=== PATIENT | female | born 1950 | race Caucasian/White ===

== ENCOUNTER 2017-09-04 11:19 | Outpatient (CLI) | payer MEDICARE ==
[2017-09-04 12:00] LABS: #Eosinphils 0.1 thou/uL (0.0-0.7); #Monocytes 0.4 thou/uL (0.11-0.59); #Neutrophils 2.5 thou/uL (1.40-6.50); %Basophils 0.8 % (0.0-1.0); %Lymphocytes 39.3 % (21.0-51.0); %Monocytes 8.3 % (0.0-10.0); %Neutrophils 49.5 % (42.0-75.0); Hemoglobin 12.2 g/dL (12.0-16.0); Mean Corpuscular HGB CONC 33.4 g/dL (32.0-36.0); Mean Corpuscular Hemoglobin 28.8 pg (27.0-31.0); Mean Corpuscular Volume 86.3 fl (81.0-99.0); Mean Platelet Volume 7.1 fL (7.4-10.4); Platelet Count 268 thou/uL (130-400); RBC Distribution Width 11.8 % (11.5-14.5); Red Blood Cell (RBC) Count 4.23 mill/uL (4.20-5.40)
[2017-09-04 12:22] LABS: PTT 33.1 SEC (22.9-36.1); Prothrombin Time 13.4 SEC (12.0-14.7)
[2017-09-04 12:30] LABS: Bilirubin Small (Negative); Blood, Urine Negative (Negative); Clarity CLOUDY (Clear); Glucose, Urine (Dipstick) Negative (Negative); Leukocyte Small (Negative); Nitrite Negative (Negative); Protein, Urine (Dipstick) Trace mg/dL (Neg-Trace); Specific Gravity, Urine 1.034 (1.002-1.036)
[2017-09-04 12:38] LABS: Bacteria/HPF Rare-Few HPF (None Seen); Pathc Cast-AUWi Flag 1.74 (0-2.49)
[2017-09-04 12:45] LABS: Hyaline Casts/LPF 4-6 HYALINE CAST LPF (0-3 Hyaline); Renal Epithelial None Seen HPF (0-3); Transitional Epithelial 0-3 HPF (0-3)
[2017-09-04 12:45] LABS: Anion Gap 10 mmol/L (10-20); BUN (Urea Nitrogen) 15 mg/dL (9.8-20.1); Calc. Creatinine Clearance 0 mL/min (70-130); Calcium 9.7 mg/dL (7.8-10.44); Carbon Dioxide 27 mmol/L (23-31); Chloride 106 mmol/L (98-107); Estimated GFR-MDRD 88; Glucose 103 mg/dL (80-115); Potassium 3.7 mmol/L (3.5-5.1); Sodium 139 mmol/L (136-145)
[2017-09-04 12:46] LABS: Crystals/HPF RARE CA OXALATE HPF (Negative)
--- NOTE | 2017-09-04 13:25 | RAD ---
TWO VIEW CHEST: HISTORY: Preoperative evaluation. COMPARISON: 04/24/16. FINDINGS: The thoracolumbar scoliotic curvature to the right is again noted. Epidural stimulator leads are aga in noted overlying the midthoracic spine. The lung cornejo appear clear. Heart and mediastinum unrem arkable. Osseous structures unremarkable. IMPRESSION: No acute process or significant interval change. POS: [facility]
--- NOTE | 2017-09-10 15:29 | EKG ---
Test Reason : Blood Pressure : / mmHG Vent. Rate : 076 BPM Atrial Rate : 076 BPM P-R Int : 170 ms QRS Dur : 094 ms QT Int : 380 ms P-R-T Axes : 062 061 061 degrees QTc Int : 427 ms Normal sinus rhythm Normal ECG When compared with ECG of 24-APR-2016 13:27, No significant change was found Confirmed by Rishi MOSLEY ([id number]) on 09/10/2017 3:29:24 PM Referred By: GLORIA Confirmed By:Rishi MOSLEY
== END 2017-09-04 11:20 | disposition home or self-care (01) ==
LOC: LABBT 11:19
PROVIDERS: ATTEND Orthopaedic Surgery
DX: Z01.818 Encounter for other preprocedural examination (principal); M17.12 Unilateral primary osteoarthritis, left knee
CPT/HCPCS: 71046; 80048; 81001; 85025; 85610; 85730; 86850; 86900; 86901; 87081; 93005; 93010

== ENCOUNTER 2017-09-10 08:22 | Inpatient (IN) | payer MEDICARE ==
[2017-09-04 11:58] VITALS: BMI 27.8
[2017-09-10] MEDS ORDERED: Midazolam HCl 2 mg/2 ml Vial ONE ×2 (10:10→13:46)
[2017-09-10] MEDS ORDERED: Fentanyl 100 MCG/2 ML VIAL ONE ×3 (10:11→13:24)
[2017-09-10] MEDS ORDERED: CEFAZOLIN/Water 2 GM/20 ML SYRINGE ONE (10:12)
[2017-09-10] MEDS ORDERED: Sodium Chloride 0.9% 100 ML ONE (10:12)
[2017-09-10] MEDS ORDERED: Acetaminophen 325 MG TAB PO PRN (10:46)
[2017-09-10] MEDS ORDERED: Ondansetron HCl/PF 4 MG/2 ML Vial IVP PRN ×2 (10:46→11:04)
[2017-09-10] MEDS ORDERED: HYDROcodone/Acetaminophen 10/325 mg Tablet PO PRN ×3 (10:46→11:04)
[2017-09-10] MEDS ORDERED: diphenhydrAMINE 25 MG CAP PO PRN (10:46)
[2017-09-10] MEDS ORDERED: Zolpidem Tartrate 5 MG TAB PO PRN ×2 (10:46→11:04)
[2017-09-10] MEDS ORDERED: traMADol HCl 50 MG TAB PO PRN ×3 (10:46→11:04)
[2017-09-10] MEDS ORDERED: Fentanyl 100 MCG/2 ML VIAL SLOW IVP PRN ×2 (10:46)
[2017-09-10] MEDS ORDERED: Promethazine HCl 25 MG/ML VIAL IM PRN ×2 (10:46→11:04)
[2017-09-10] MEDS ORDERED: Tranexamic Acid 1,000 MG in Sodium Chloride 0.9% 100 ML IVPB SCH (11:00)
--- NOTE | 2017-09-10 13:02 | OP ---
DATE OF PROCEDURE: 09/10/2017 PREOPERATIVE DIAGNOSIS: End-stage tricompartmental osteoarthritis, left knee. POSTOPERATIVE DIAGNOSIS: End-stage tricompartmental osteoarthritis, left knee. OPERATIVE PROCEDURE: Cemented cruciate-sparing computer-assisted navigated left total knee arthropla stcamila. SURGEON: Angus Ye M.D. SUSTAINABILITY COMMUNICATOR: Arsh Moe PA-C. ANESTHESIA: General via laryngeal mask airway augmented with indwelling femoral block and a single s hot sciatic block. COMPONENTS USED: [employer] Triathlon primary cemented, size 4 cruciate-sparing femoral com ponent, Triathlon primary size 4 tibial baseplate, and a 9 mm polyethylene fixed bearing insert, and A29 patellar button. TOURNIQUET TIME: 56 minutes at 300 mmHg. ESTIMATED BLOOD LOSS: Less than 100 mL. FINDINGS: End-stage severe degenerative tricompartmental disease, bone on bone arthrosis, periarticu lar osteophyte formation, large serous effusion and hypertrophic synovium. DRAINS: None. SPECIMENS: None. COMPLICATIONS: None. COUNTS: Correct. INDICATIONS FOR SURGERY: Lakisha is a 66-year-old white female who has had progressive left knee pain amplified with standing and walking for the last 5-7 years. She has failed conservative management a nd elected to proceed with total knee arthroplasty as a definitive treatment of her pain. PROCEDURE IN DETAIL: After informed consent was obtained in the preoperative holding area. The marisol ent was taken to the operative suite where general anesthesia was induced. Once adequate level of ge neral anesthesia was obtained, the patient was positioned and a well-padded tourniquet was placed denisha und the left proximal thigh. The left lower extremity was then prepped and draped in the usual steri le fashion. Prior to exsanguination, a time out was called and all members of the surgical team agre ed upon site, surgeon, and patient. The extremity was then exsanguinated and the tourniquet was rais ed. A midline longitudinal incision was then made directly over the patella extending two fingerbrea dths above the superior pole of the patella and two fingerbreadths inferior to the inferior patellar pole of the patella. Deeper subcutaneous layers were dissected sharply and local bleeding was contro lled with Bovie electrocautery. A quad tendon longitudinal split was then made sharply and a median parapatellar arthrotomy was carried out both sharp and with Bovie electrocautery, carried down to one fingerbreadth medial to the tibial tubercle. The knee was then placed into flexion and the patella was everted nicely, and a copious fat pad ectomy was performed allowing for greater exposure of the t ibia. The computer-assisted distal femoral fiducial was then placed and pinned firmly, and the dista l femoral cutting guide was pinned firmly into place. The oscillating saw was then used to remove th e appropriate amount of bone. The 4-in-1 cutting block was then placed on the distal femur and the o scillating saw was used to remove the appropriate amount of bone off of the anterior, posterior, and chamfer cuts. After completion of the chamfer cuts, the box-cutting guide was placed, malleted firml y into place and pinned securely, and an osteotome was used to make the distal cut and the oscillatin g saw was then used to make the medial and lateral box cuts. This came out quite nicely and was neo asha with Bovie electrocautery, and the oscillating saw was then used to broaden the lateral medial wa lls of the box cut. After completion of bone cuts, the anterior cruciate ligament was resected sharp ly and the posterior cruciate ligament retractor was placed and the tibia was subluxed for better exp osure. Partial meniscectomies were carried out, and the tibial computer-assisted fiducial was pinned , and the cutting guide was placed. Oscillating saw was then used to remove the bone with Hohmann re tractors used to take care and protect the collateral ligaments. After the tibial resection was perf ormed, a laminar janitorial manager was placed in between the freshened bone cuts. The knee placed at 90 degre es and further bilateral meniscectomies were carried out, and the curved osteotome and curettage was used to remove any excess bone spurs in the posterior compartment. The trial femoral component, tibi al baseplate were placed with the appropriate polyethylene trial insert with an appropriate polyethyl yuriy spacer and patellar button. The knee was taken through full range of motion with flexion and ext ension from 0-90 degrees and patellar broach squarely in the trochlea without any squinting or sublu xation noted. The knee was also stable to varus and valgus stressing at 0, 15, 45, and 90 degrees of flexion. The drawer was negative. All trial components were then removed and the keel punch was use d to provide the appropriate defect in the tibia with a mallet. The freshened bone cuts were copious ly irrigated with pulsatile lavage of about 1-1/2 liters to remove all excess debris. The freshened bone cuts were then dried and with suction and lap sponge. The knee was placed in flexion and retrac tors were placed to provide access to all bone cuts. Tobramycin impregnated methyl methacrylate ceme nt was then placed on the freshened bone cuts and implants which were malleted firmly into place. Cu rettage and [place] elevators were used to remove any excess bone cement. The knee was placed into ful l extension and the patellar button was placed under compression, and the cement was allowed to cure. Once completed, the components were again taken through full range of motion and copious irrigation of the knee was carried out with another liter of normal saline. All components were inspected full y with full range of motion and varus and valgus stressing. There was no laxity noted and full extens ion was observed clinically. Primary closure was accomplished with #2 interrupted Vicryl stitch of t he arthrotomy defect. This was oversewn with a #2 running Quill barbed stitch. The subcutaneous lay er was then closed with a running 0 barbed Monocryl stitch and skin closure accomplished with a runni ng subcuticular 3-0 Monocryl barbed Quill stitch and augmented with cement on the skin. Tourniquet w as lowered. Good spontaneous return of distal pulses was noted clinically and a sterile dressing was applied to the incision. The procedure was terminated without any complications. The patient was a wakened in the operative suite and taken to the recovery room in stable condition.
[2017-09-10] MEDS ORDERED: Morphine 4 MG/ML VIAL ONE (13:28)
[2017-09-10] MEDS ORDERED: HYDROmorphone 0.5 MG/0.5 ML SYRINGE ONE (13:43)
[2017-09-10] MEDS ORDERED: Ketorolac Tromethamine 30 MG/ML VIAL IVP SCH (14:00)
--- NOTE | 2017-09-10 14:18 | RAD ---
LEFT KNEE TWO VIEWS: HISTORY: Total knee replacement postop exam. FINDINGS: There are recent postop changes of total knee arthroplasty in good position and alignment. Soft tiss ue air is noted. POS: [facility]
[2017-09-10] MEDS ORDERED: Lidocaine 1% PF 5 ML VIAL ONE (15:41)
[2017-09-10] MEDS ORDERED: Ondansetron HCl/PF 4 MG/2 ML Vial ONE (15:41)
[2017-09-10] MEDS ORDERED: Ketorolac Tromethamine 30 MG/ML VIAL ONE (15:41)
[2017-09-10] MEDS ORDERED: PROPOFOL 200 MG/20 ML VIAL ONE (15:41)
[2017-09-10] MEDS: Sodium Chloride 0.9% 1,000 ML IV SCH ×2 (15:44→20:25)
[2017-09-10] MEDS: HYDROcodone/Acetaminophen 10/325 mg Tablet PO PRN ×2 (15:50→20:11)
[2017-09-10] MEDS: Gabapentin 100 MG CAP PO SCH ×2 (15:50→20:12)
[2017-09-10] MEDS: CEFAZOLIN/Water 2 GM/20 ML SYRINGE SLOW IVP SCH (18:16)
[2017-09-10] MEDS: traZODone HCl 150 MG TAB PO SCH (20:09)
[2017-09-10] MEDS: Rosuvastatin 20 MG TAB PO SCH (20:09)
[2017-09-10] MEDS: Docusate 100 MG CAP PO SCH (20:09)
[2017-09-10] MEDS: Venlafaxine HCl XR 150 MG CAP PO SCH (20:10)
[2017-09-10] MEDS: Aspirin 81 mg Enteric Coated Tablet PO SCH (20:10)
[2017-09-10] MEDS: Ferrous Gluconate 324 MG TAB PO SCH (20:11)
[2017-09-10] MEDS: lamoTRIgine 100 MG TAB PO SCH (20:11)
[2017-09-10] MEDS ORDERED: Prevnar 13-Val Conj/PF 0.5 ML SYRINGE IM ONE (21:00)
[2017-09-10] MEDS ORDERED: Lorazepam 1 MG TAB PO SCH (21:00)
[2017-09-10] MEDS ORDERED: Senokot 8.6 MG TAB PO SCH (21:00)
--- NOTE | 2017-09-10 22:29 | PDOC.PN ---
- Subjective Encounter Start Date: 09/10/17 Encounter Start Time: 15:00 Patient seen and examined for med mngt. Back pain + which is chronic. No new complaints. - Objective MAR Reviewed: Yes Vital Signs & Weight: Vital Signs (12 hours) Temp Pulse Resp BP Pulse Ox 09/10/17 20:00 98.1 F 74 16 118/70 93 L 09/10/17 14:30 97.3 F L 71 16 136/73 95 Weight Weight 157 lb I&O: 09/09/17 09/10/17 09/11/17 06:59 06:59 06:59 Intake Total 550 Output Total 250 Balance 300 Additional Labs: Laboratory Tests 09/04/17 09/04/17 11:40 11:40 Hgb 12.2 Sodium 139 BUN 15 Creatinine 0.67 EKG Reviewed by me: Yes (SR) Phys Exam - Physical Examination Constitutional: NAD Respiratory: no wheezing, no rales, no rhonchi Cardiovascular: RRR, no rub Gastrointestinal: soft, non-tender, positive bowel sounds Musculoskeletal: no edema Dx/Plan (1) HLD (hyperlipidemia) Code(s): E78.5 - HYPERLIPIDEMIA, UNSPECIFIED Status: Chronic (2) Chronic back pain Code(s): M54.9 - DORSALGIA, UNSPECIFIED; G89.29 - OTHER CHRONIC PAIN Status: Chronic Qualifiers: (3) Anxiety and depression Code(s): F41.9 - ANXIETY DISORDER, UNSPECIFIED; F32.9 - MAJOR DEPRESSIVE DISORDER, SINGLE EPISODE, UNSPECIFIED Status: Chronic (4) CKD (chronic kidney disease) stage 2, GFR 60-89 ml/min Code(s): N18.2 - CHRONIC KIDNEY DISEASE, STAGE 2 (MILD) Status: Chronic - Plan DVT proph w/SCDs Cont current home meds as below -: High risk for resp depression while on pain meds/Lorazepam -: Will add cont pulse ox -: DC Gabapentin - Pt does not take this med anymore -: Will follow. Thank you for this consultation. Full code - DPOA - self/fam Review of Systems - Review of Systems Respiratory: negative: Cough, Dry, Shortness of Breath, Hemoptysis, SOB with Excertion, Pleuritic Pain, Sputum, Wheezing Cardiovascular: negative: chest pain, palpitations, orthopnea, paroxysmal nocturnal dyspnea, edema, light headedness, other - Medications/Allergies Allergies/Adverse Reactions: Allergies Allergy/AdvReac Type Severity Reaction Status Date / Time No Known Allergies Allergy Verified 09/04/17 11:59 Medications: Current Medications Acetaminophen (Tylenol) 650 mg PO Q4H PRN PRN Reason: MARIN/ T > 101F; Mild Pain (1-3) Hydrocodone Bitart/Acetaminophen ([place] 10/325) 1 tab PO Q4H PRN PRN Reason: Pain (1-3) Hydrocodone Bitart/Acetaminophen ([place] 10/325) 2 tab PO Q4H PRN PRN Reason: PAIN (4-6) Last Admin: 09/10/17 20:11 Dose: 2 tab Aspirin (Ecotrin) 81 mg PO BID [facility] Last Admin: 09/10/17 20:10 Dose: 81 mg Cefazolin Sodium (Ancef) 2 gm SLOW IVP Q8H [facility] Stop: 09/11/17 03:01 Last Admin: 09/10/17 18:16 Dose: 2 gm Cholecalciferol (Vitamin D3) 2,000 units PO [facility] Last Admin: 09/10/17 20:10 Dose: 2,000 units Diphenhydramine HCl (Benadryl) 25 mg PO Q6H PRN PRN Reason: Itching Docusate Sodium (Colace) 100 mg PO BID [facility] Last Admin: 09/10/17 20:09 Dose: 100 mg Fentanyl (Sublimaze) 50 mcg IV Q1H PRN PRN Reason: BREAKTHROUGH PAIN Ferrous Gluconate (Fergon) 324 mg PO BID [facility] Last Admin: 09/10/17 20:11 Dose: 324 mg Sodium Chloride (Normal Saline 0.9%) 1,000 mls @ 100 mls/hr IV .Q10H [facility] Last Admin: 09/10/17 20:25 Dose: Not Given Bupivacaine HCl 50 ml/ Sodium (Chloride) 100 mls @ 0 mls/hr NERVE BLCK INF [facility] PRN Reason: As Directed Iron/Minerals/Multivitamins (Theragran M) 1 tab PO DAILY [facility] Lamotrigine (Lamictal) 200 mg PO [facility] Last Admin: 09/10/17 20:11 Dose: 200 mg Lorazepam (Ativan) 1 mg PO [facility] Last Admin: 09/10/17 20:10 Dose: 1 mg Ondansetron HCl (Zofran) 4 mg IVP Q6H PRN PRN Reason: Nausea/Vomiting Pantoprazole Sodium (Protonix) 40 mg PO BID [facility] Last Admin: 09/10/17 20:10 Dose: 40 mg Promethazine HCl (Phenergan) 12.5 mg IM Q4H PRN PRN Reason: Nausea Rosuvastatin Calcium (Crestor) 20 mg PO HS [facility] Last Admin: 09/10/17 20:09 Dose: 20 mg Senna/Docusate Sodium (Senokot S) 2 tab PO BID [facility] Sodium Chloride (Flush - Normal Saline) 10 ml IVF PRN PRN PRN Reason: Saline Flush Tramadol HCl (Ultram) 50 mg PO Q6H PRN PRN Reason: Mild Pain (1-3) Tramadol HCl (Ultram) 100 mg PO Q6H PRN PRN Reason: Moderate Pain 4-6 Trazodone HCl (Desyrel) 150 mg PO [facility] Last Admin: 09/10/17 20:09 Dose: 150 mg Venlafaxine HCl (Effexor Xr) 150 mg PO BID [facility] Last Admin: 09/10/17 20:10 Dose: 150 mg Zolpidem Tartrate (Ambien) 5 mg PO HSPRN PRN PRN Reason: Insomnia
[2017-09-11] MEDS: Bupivacaine 0.5% 50 ML in Sodium Chloride 0.9% 50 ML NERVE BLCK SCH ×2 (01:22→13:06)
[2017-09-11] MEDS: HYDROcodone/Acetaminophen 10/325 mg Tablet PO PRN ×3 (01:27→09:48)
[2017-09-11] MEDS: CEFAZOLIN/Water 2 GM/20 ML SYRINGE SLOW IVP SCH (02:24)
[2017-09-11] MEDS: Fentanyl 100 MCG/2 ML VIAL IV PRN ×2 (04:29→07:07)
[2017-09-11 05:29] LABS: Hemoglobin 10.9 g/dL (12.0-16.0); Mean Corpuscular HGB CONC 32.9 g/dL (32.0-36.0); Mean Corpuscular Hemoglobin 28.3 pg (27.0-31.0); Mean Corpuscular Volume 85.9 fl (81.0-99.0); Mean Platelet Volume 6.9 fL (7.4-10.4); Platelet Count 209 thou/uL (130-400); RBC Distribution Width 11.7 % (11.5-14.5); Red Blood Cell (RBC) Count 3.87 mill/uL (4.20-5.40); White Blood Cell (WBC) Count 7.9 thou/uL (4.8-10.8)
[2017-09-11] MEDS: Sodium Chloride 0.9% 1,000 ML IV SCH (06:00)
[2017-09-11] MEDS: Ferrous Gluconate 324 MG TAB PO SCH ×2 (09:47→21:39)
[2017-09-11] MEDS: Docusate 100 MG CAP PO SCH ×2 (09:47→21:41)
[2017-09-11] MEDS: Aspirin 81 mg Enteric Coated Tablet PO SCH ×2 (09:48→21:41)
[2017-09-11] MEDS: Senokot S 8.6-50 MG TAB PO SCH ×2 (09:48→21:48)
[2017-09-11] MEDS: Multivitamin W/ Minerals 1 TAB PO SCH (09:48)
[2017-09-11] MEDS: Venlafaxine HCl XR 150 MG CAP PO SCH ×2 (11:21→21:39)
[2017-09-11] MEDS ORDERED: fentaNYL Citrate/PF 2,000 MCG in Sodium Chloride 0.9% 60 ML IV PRN (11:30)
--- NOTE | 2017-09-11 12:28 | PRG ---
DATE OF SERVICE: 09/11/2017 SUBJECTIVE: Lakisha is a 66-year-old white female who is postop day #1 from left total knee arthroplas ty. She complains bitterly of pain. She is uncomfortable and we have had to use parenteral pain con trol for her. PHYSICAL EXAMINATION: VITAL SIGNS: Temperature 98.6, pulse 85, respiratory rate 16, blood pressure is 1702/64. GENRAL: She is alert and oriented. She is responsive, and appropriate, but a little sluggish. Zenia sly nonfocal. Hemoglobin and hematocrit 10.9 and 32.2. ASSESSMENT: 1. A 66-year-old white female postop day #1 left total knee arthroplasty. 2. Bipolar disorder. 3. Chronic pain. 4. Mild postoperative hemorrhagic anemia. PLAN: Continue current care. Pain control will be maximized, but I believe she will probably be inp atient until Saturday of this week.
[2017-09-11] MEDS: Acetaminophen 325 MG TAB PO SCH ×2 (13:06→19:04)
--- NOTE | 2017-09-11 13:41 | PDOC.PN ---
- Subjective Encounter Start Date: 09/11/17 Encounter Start Time: 12:00 -: old records requested/rev Pt seen and exmained, chart reviewed in its entirety, this is my first visit with this patient followup consultation for med management post R TKA POD 1, pain ok, anesthesia discussng with patient at present as well no F/c, no N/V/D/c, no CP or SOB. All systems reviewed and neg x as above - Objective MAR Reviewed: Yes Vital Signs & Weight: Vital Signs (12 hours) Temp Pulse Resp BP Pulse Ox 09/11/17 11:41 97.9 F 76 16 147/74 H 96 09/11/17 07:49 98.6 F 85 172/64 H 95 09/11/17 05:24 98.6 F 87 16 158/76 H 94 L Weight Admit Weight 157 lb Weight 157 lb I&O: 09/10/17 09/11/17 09/12/17 06:59 06:59 06:59 Intake Total 1867 481 Output Total 250 600 Balance 1617 -119 Result Diagrams: 09/11/17 05:03 Radiology Reviewed by me: Yes EKG Reviewed by me: Yes Phys Exam - Physical Examination Constitutional: NAD HEENT: PERRLA, moist MMs, sclera anicteric, oral pharynx no lesions Neck: no nodes, no JVD, supple, full ROM Respiratory: no wheezing, no rales, no rhonchi, clear to auscultation bilateral Cardiovascular: RRR, no significant murmur Gastrointestinal: soft, non-tender, no distention, positive bowel sounds Musculoskeletal: pulses present, edema present Neurological: non-focal, normal sensation, moves all 4 limbs Lymphatic: no nodes Psychiatric: normal affect, A&O x 3 Skin: no rash, normal turgor, cap refill <2 seconds Dx/Plan (1) Anxiety and depression Code(s): F41.9 - ANXIETY DISORDER, UNSPECIFIED; F32.9 - MAJOR DEPRESSIVE DISORDER, SINGLE EPISODE, UNSPECIFIED Status: Chronic (2) CKD (chronic kidney disease) stage 2, GFR 60-89 ml/min Code(s): N18.2 - CHRONIC KIDNEY DISEASE, STAGE 2 (MILD) Status: Chronic (3) HLD (hyperlipidemia) Code(s): E78.5 - HYPERLIPIDEMIA, UNSPECIFIED Status: Chronic Qualifiers: Hyperlipidemia type: unspecified Qualified Code(s): E78.5 - Hyperlipidemia , unspecified (4) Postoperative anemia due to acute blood loss Code(s): D62 - ACUTE POSTHEMORRHAGIC ANEMIA Status: Acute (5) Status post total knee replacement, right Code(s): Z96.651 - PRESENCE OF RIGHT ARTIFICIAL KNEE JOINT Status: Acute (6) Bipolar disorder Code(s): F31.9 - BIPOLAR DISORDER, UNSPECIFIED Status: Chronic Qualifiers: Active/Remission status: in full remission Most recent bipolar episode type : most recent episode unspecified type Qualified Code(s): F31.70 - Bipolar disorder, currently in remission, most recent episode unspecified (7) Chronic back pain Code(s): M54.9 - DORSALGIA, UNSPECIFIED; G89.29 - OTHER CHRONIC PAIN Status: Chronic Qualifiers: Back pain location: low back pain Sciatica presence: without sciatica (8) Obesity Code(s): E66.9 - OBESITY, UNSPECIFIED Status: Chronic Qualifiers: Obesity type: unspecified obesity type Qualified Code(s): E66.9 - Obesity, unspecified - Plan cont current plan of care, PT/OT, out of bed/ambulate * .
[2017-09-11] MEDS: Rosuvastatin 20 MG TAB PO SCH (21:38)
[2017-09-11] MEDS: traZODone HCl 150 MG TAB PO SCH (21:39)
[2017-09-11] MEDS: lamoTRIgine 100 MG TAB PO SCH (21:40)
[2017-09-12] MEDS: Acetaminophen 325 MG TAB PO SCH ×4 (00:30→17:33)
[2017-09-12] MEDS: Bupivacaine 0.5% 50 ML in Sodium Chloride 0.9% 50 ML NERVE BLCK SCH (01:51)
[2017-09-12 05:38] LABS: Hemoglobin 10.7 g/dL (12.0-16.0); Mean Corpuscular HGB CONC 32.9 g/dL (32.0-36.0); Mean Corpuscular Hemoglobin 28.2 pg (27.0-31.0); Mean Corpuscular Volume 85.7 fl (81.0-99.0); Platelet Count 197 thou/uL (130-400); RBC Distribution Width 11.5 % (11.5-14.5); Red Blood Cell (RBC) Count 3.81 mill/uL (4.20-5.40); White Blood Cell (WBC) Count 8.9 thou/uL (4.8-10.8)
[2017-09-12] MEDS: Multivitamin W/ Minerals 1 TAB PO SCH (08:54)
[2017-09-12] MEDS: Docusate 100 MG CAP PO SCH (08:54)
[2017-09-12] MEDS: Sodium Chloride 0.9% 1,000 ML IV SCH ×3 (08:54→18:47)
[2017-09-12] MEDS: Ferrous Gluconate 324 MG TAB PO SCH (08:54)
[2017-09-12] MEDS: Senokot S 8.6-50 MG TAB PO SCH (08:54)
[2017-09-12] MEDS: Aspirin 81 mg Enteric Coated Tablet PO SCH (08:54)
[2017-09-12] MEDS: Venlafaxine HCl XR 150 MG CAP PO SCH (08:57)
--- NOTE | 2017-09-12 13:41 | PDOC.PN ---
- Subjective Encounter Start Date: 09/12/17 Encounter Start Time: 10:50 no event,s no compalints, `Bp stable, going home today - Objective MAR Reviewed: Yes Vital Signs & Weight: Vital Signs (12 hours) Temp Pulse Resp BP Pulse Ox 09/12/17 11:25 97.8 F 83 18 167/75 H 94 L 09/12/17 08:00 97.9 F 79 18 100 09/12/17 07:27 97.9 F 79 18 153/69 H 100 09/12/17 06:31 98.1 F 81 18 156/72 H 99 Weight Admit Weight 157 lb Weight 157 lb I&O: 09/11/17 09/12/17 09/13/17 06:59 06:59 06:59 Intake Total 1867 1421 Output Total 250 1100 Balance 1617 321 Result Diagrams: 09/12/17 05:18 Phys Exam - Physical Examination Constitutional: NAD HEENT: PERRLA, moist MMs, sclera anicteric, oral pharynx no lesions Neck: no nodes, no JVD, supple, full ROM Respiratory: no wheezing, no rales, no rhonchi, clear to auscultation bilateral Cardiovascular: RRR, no significant murmur, no rub Gastrointestinal: soft, non-tender, no distention, positive bowel sounds Musculoskeletal: no edema, pulses present Neurological: non-focal, normal sensation, moves all 4 limbs Lymphatic: no nodes Psychiatric: normal affect, A&O x 3 Skin: no rash, normal turgor, cap refill <2 seconds Dx/Plan (1) Anxiety and depression Code(s): F41.9 - ANXIETY DISORDER, UNSPECIFIED; F32.9 - MAJOR DEPRESSIVE DISORDER, SINGLE EPISODE, UNSPECIFIED Status: Chronic (2) CKD (chronic kidney disease) stage 2, GFR 60-89 ml/min Code(s): N18.2 - CHRONIC KIDNEY DISEASE, STAGE 2 (MILD) Status: Chronic (3) HLD (hyperlipidemia) Code(s): E78.5 - HYPERLIPIDEMIA, UNSPECIFIED Status: Chronic Qualifiers: Hyperlipidemia type: unspecified Qualified Code(s): E78.5 - Hyperlipidemia , unspecified (4) Postoperative anemia due to acute blood loss Code(s): D62 - ACUTE POSTHEMORRHAGIC ANEMIA Status: Acute (5) Status post total knee replacement, right Code(s): Z96.651 - PRESENCE OF RIGHT ARTIFICIAL KNEE JOINT Status: Acute (6) Bipolar disorder Code(s): F31.9 - BIPOLAR DISORDER, UNSPECIFIED Status: Chronic Qualifiers: Active/Remission status: in full remission Most recent bipolar episode type : most recent episode unspecified type Qualified Code(s): F31.70 - Bipolar disorder, currently in remission, most recent episode unspecified (7) Chronic back pain Code(s): M54.9 - DORSALGIA, UNSPECIFIED; G89.29 - OTHER CHRONIC PAIN Status: Chronic Qualifiers: Back pain location: low back pain Sciatica presence: without sciatica (8) Obesity Code(s): E66.9 - OBESITY, UNSPECIFIED Status: Chronic Qualifiers: Obesity type: unspecified obesity type Qualified Code(s): E66.9 - Obesity, unspecified - Plan cont current plan of care, PT/OT, out of bed/ambulate * .
[2017-09-12 15:41] VITALS: TEMP 98.6
[2017-09-12] MEDS ORDERED: HYDROcodone/Acetaminophen 10/325 mg Tablet PO PRN ×2 (16:51)
[2017-09-12] MEDS ORDERED: HYDROcodone/Acetaminophen 10/325 mg Tablet PO SCH (17:00)
[2017-09-12 17:09] VITALS: BP 171/74
== END 2017-09-12 19:46 | disposition home or self-care (01) | DRG 470 ==
LOC: SDC 08:22 → SURG B 10:46
PROVIDERS: ADMIT Orthopaedic Surgery; ATTEND Orthopaedic Surgery
PROC: 0SRD0J9 Replacement of Left Knee Joint with Synthetic Substitute, Cemented, Open Approach (ICD-10-PCS; principal; 2017-09-10)
DX: M17.12 Unilateral primary osteoarthritis, left knee (principal); D62 Acute posthemorrhagic anemia; F31.9 Bipolar disorder, unspecified; G89.29 Other chronic pain; K21.9 Gastro-esophageal reflux disease without esophagitis; E66.9 Obesity, unspecified; F41.9 Anxiety disorder, unspecified; N18.9 Chronic kidney disease, unspecified; M54.9 Dorsalgia, unspecified; F32.9 Major depressive disorder, single episode, unspecified; Z96.651 Presence of right artificial knee joint; Z90.710 Acquired absence of both cervix and uterus
CPT/HCPCS: 36415; 85027; 94760; C1713; C1776; G8978-GP-CL; G8979-GP-CK; J1170; J1885; J2001; J2250; J2270; J2405; J2704; J3010; J3370; J3490; J7050